=== PATIENT | female | born 1985 | race African-American/Black ===

== ENCOUNTER 2021-08-30 08:17 | Emergency (ER) | payer OTHER ==
[2021-08-30 09:09] LABS: Urine Blood Negative (Negative); Urine Glucose Negative (Negative); Urine Protein Negative (Negative); Urine Specific Gravity 1.025 (1.005-1.030)
[2021-08-30 09:15] LABS: BUN Blood Urea Nitrogen 13 mg/dL (7-18); Bicarbonate 30 mmol/L (21-32); Glucose Level 86 mg/dL (74-106); Magnesium 2.2 mg/dL (1.8-2.4); Sodium Level 137 mmol/L (136-145)
[2021-08-30 09:17] LABS: Absolute Lymphocytes (CBC) 1.2 K/uL (0.7-4.9); Basophils % 0.7 % (0-1.3); Hematocrit 34.7 % (36.0-45.0); Lymphocytes % 33.6 % (15.3-44.8); MPV 9.1 fL (7.6-11.3); RBC Red Blood Cell Count 3.89 M/uL (3.86-4.86)
--- NOTE | 2021-08-30 09:43 | RAD REPORT ---
EXAM DESCRIPTION: CT - Head Brain Wo Cont - 08/30/2021 9:19 am CLINICAL HISTORY: #Left facial spasm COMPARISON: No comparisons TECHNIQUE: Axial 5 mm thick images of the head were obtained without IV contrast. All CT scans are performed using dose optimization technique as appropriate and may include automated exposure control or mA/KV adjustment according to patient size. FINDINGS: No intracranial hemorrhage, mass, edema or shift of mid-line structures. No acute infarcti on changes seen. No abnormal extra-axial fluid collections. Ventricles are normal. Mastoid air cells and visualized portions of the paranasal sinuses are clear. No acute bony findings. IMPRESSION: Negative non-contrast CT head examination.
[2021-08-30 10:10] LABS: Urine Bacteria LOADED /HPF (<20); Urine RBC NONE SEEN /HPF (NONE SEEN)
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
[2021-08-30] MEDS ORDERED: SMZ./TMP. 800/160 MG TABLET ONE (10:19)
[2021-08-30 11:31] VITALS: BP 126/80; O2SAT 100
[2021-08-30 12:42] LABS: Urine Specific Gravity/Preg 1.025 (1.005-1.030)
== END 2021-08-30 10:27 | disposition home or self-care (01) ==
LOC: ER 08:17
DX: N39.0 Urinary tract infection, site not specified (principal); G51.32 Clonic hemifacial spasm, left; Z88.0 Allergy status to penicillin
CPT/HCPCS: 36415; 70450; 80048; 81003; 81015; 81025; 83735; 85025; 87077; 87086; 87088; 87186; 99284